=== PATIENT | male | born 1945 | race Caucasian/White ===

== ENCOUNTER 2022-10-06 13:48 | Emergency (ER) | payer MEDICARE, BC ==
[~2022-10-06] VITALS: Ht 177.8 cm; Wt 72.7 kg
[~2022-10-06 13:48] MED LIST: ATOR40TA PO; ATOR80TA PO; CHOL2000 PO; COU1T PO; CYAN25004 SL; DAPA5TAB PO; EMPA10TA PO; LISI20TA28 PO; LISI40TA13 PO; METF-436 PO; METF500T PO; METO100T14 PO; MULT-785 PO; NATE120T6 PO; POTA99TA18 PO; SITA100T11 PO; SOTA80TA46 PO; TRAZ-251 PO; UBID200C37 PO; WARF-113 PO; WARF-55 PO
[2022-10-06] MEDS ORDERED: normal saline 1000ML IV soln IVB ONE (14:05)
[2022-10-06 14:24] LABS: EOSINOPHILS # (AUTO) 0.3 X10'3 (0-0.9); HEMOGLOBIN 10.5 g/dl (14.0-17.9); MEAN PLATELET VOLUME 6.7 FL (7.4-10.4); NEUTROPHILS # (AUTO) 10.7 X10'3 (1.8-7.7)
[2022-10-06 14:26] LABS: BASOPHILS # (AUTO) 0.1 X10'3 (0-0.2); BASOPHILS % (AUTO) 0.7 % (0-1); EOSINOPHILS % (AUTO) 2.6 % (0-6); HEMATOCRIT 32.8 % (42.0-52.0); LYMPHOCYTES # (AUTO) 0.8 X10'3 (1.1-4.8); LYMPHOCYTES % (AUTO) 6.2 % (21-51); MEAN CORPUSCULAR HEMOGLOBIN 26.2 PG (27.0-31.0); MEAN CORPUSCULAR HGB CONC 31.9 g/dL (33.0-36.5); MONOCYTES % (AUTO) 7.7 % (2-12); NEUTROPHILS % (AUTO) 82.8 % (42-75); PLATELET COUNT 745 X10'3 (140-440); WHITE BLOOD COUNT 12.9 X10'3 (4.5-11.0)
[2022-10-06 14:38] LABS: ALANINE AMINOTRANSFERASE 77 U/L (12-78); ALBUMIN 2.2 G/DL (3.4-5.0); ALBUMIN/GLOBULIN RATIO 0.5 (1.1-1.5); ALKALINE PHOSPHATASE 144 IU/L (46-116); ANION GAP 9 (8-16); ASPARTATE AMINO TRANSFERASE 58 U/L (10-37); BILIRUBIN,TOTAL 0.8 MG/DL (0.1-1.0); BLOOD UREA NITROGEN 24 MG/DL (7-18); BUN/CREATININE RATIO 27.3 (10.0-20.0); CALCIUM 8.8 MG/DL (8.5-10.1); CHLORIDE 99 MMOL/L (99-107); CREATININE 0.88 MG/DL (0.60-1.10); GLUCOSE 173 MG/DL (70-104); POTASSIUM 4.5 MMOL/L (3.5-5.1); SODIUM 132 MMOL/L (135-145); TOTAL CARBON DIOXIDE 24.2 MMOL/L (24-32); eGFR 84 ML/MIN
[2022-10-06 14:55] LABS: ANISOCYTOSIS 2+; LARGE PLATELETS FEW; PLATELET ESTIMATE INCREASED
[2022-10-06 16:05] LABS: CLARITY,URINE SLIGHTLY CLOUDY (Clear); COLOR,URINE YELLOW (Yellow); GLUCOSE, URINE >=1000 mg/dl (Neg); KETONES,URINE NEGATIVE (Neg); LEUKOCYTE ESTERASE ,URINE NEGATIVE (Neg); NITRITES, URINE NEGATIVE (Neg); OCCULT BLOOD,URINE SMALL (Neg); PH,URINE 6.5 (4.8-8.0); PROTEIN,URINE NEGATIVE (Neg)
[2022-10-06 16:10] LABS: UA COLLECTION TYPE FOLEY CATH
[2022-10-06 16:16] LABS: BACTERIA,URINE FEW /HPF (Neg); SQUAMOUS EPITHELIAL CELL,UR NONE SEEN /LPF (FEW); WBC,URINE 0-4 /HPF (0-4)
[2022-10-06] MEDS ORDERED: FLO0.4C PO (16:47)
--- NOTE | 2022-10-06 17:05 | NUR ---
CIND[facility] CARGO BEING CONTACTED FOR PT TRANSPORT BACK TO [facility].
[2022-10-06 18:02] VITALS: BP 142/86
== END 2022-10-07 04:02 ==
LOC: ER 13:48
DX: R33.9 Retention of urine, unspecified (principal); I10 Essential (primary) hypertension; E11.9 Type 2 diabetes mellitus without complications; Z98.890 Other specified postprocedural states
CPT/HCPCS: 36415; 51702; 74176; 80053; 81001; 85008; 85025; 96360; 99284; J7030